=== PATIENT | female | born 1995 | race Caucasian/White ===

== ENCOUNTER 2016-07-27 21:21 | Emergency (ER) | payer OTHER ==
[~2016-07-27] VITALS: Ht 162.6 cm; Wt 107.3 kg
[~2016-07-27 21:21] MED LIST: AZITHROMYCIN250 MG1 PO; IBUPROFEN800 MG PO; PRENATAL TABLE1 EAC3 PO; ZANTAC150 MG PO
[2016-07-27 21:35] VITALS: BP 135/88
[2016-07-27 22:22] LABS: ADD MIUA? NO; BILIRUBIN NEGATIVE; BLOOD NEGATIVE; COLOR YELLOW ((YELLOW)); GLUCOSE (STRIP) NEGATIVE; KETONES NEGATIVE; LEUKOCYTES NEGATIVE; NITRITE NEGATIVE; PROTEIN (STRIP) NEGATIVE; SPECIFIC GRAVITY 1.025 (1.000-1.030); UCUL ADDED? NO
[2016-07-27 22:34] LABS: HEMATOCRIT 40.5 % (36.0-46.0); MCH 29.4 PG (29.0-34.0); MCHC 34.3 G/DL (30.0-36.0); MCV 85.8 FL (83-99); MEAN PLAT.VOLUME 9.3 uM^3 (9.5-12.4); PLATELET COUNT 198 K/uL (156-360); RBC DIS.WIDTH-CV 12.6 % (11.8-14.6); RBC DIS.WIDTH-SD 38.6 % (39-53); RED BLOOD COUNT 4.72 M/uL (3.80-5.20); WHITE BLOOD COUNT 4.9 K/uL (4.1-10.2)
[2016-07-27 22:47] LABS: CHLORIDE 105 mEq/L (99-109); POTASSIUM 3.8 mEq/L (3.7-5.4); SODIUM 139 mEq/L (136-147)
[2016-07-27 22:49] LABS: GLUCOSE 95 mg/dL (70-99)
[2016-07-27 22:51] LABS: ANION GAP 11 MEQ/L (2-14)
[2016-07-27 22:52] LABS: TOTAL BILIRUBIN 0.3 mg/dL (0.0-1.0)
[2016-07-27 22:53] LABS: ALKALINE PHOSPHATASE 88 IU/L (3-129); GFR ESTIMATE (CALCULATED) > 59 mL/min/
[2016-07-27 22:54] LABS: UREA NITROGEN (BUN) 12 mg/dL (9-23)
[2016-07-27 22:57] LABS: LIPASE 9 U/L (1.0-51.0)
[2016-07-27 23:03] LABS: QUANTITATIVE HCG < 4.0 MIU/ML
[2016-07-27 23:46] LABS: INFLUENZA A VIRAL ANTIGEN POSITIVE; INFLUENZA B VIRAL ANTIGEN NEGATIVE
[2016-07-27] MEDS ORDERED: TAMIFLU75 MG PO (23:58)
== END 2016-07-28 00:54 | disposition home or self-care (01) ==
LOC: RME 21:21 → EME 21:21 → RME 07-28 00:54
PROVIDERS: Physician Assistant
DX: J10.1 Influenza due to other identified influenza virus with other respiratory manifestations (principal); K59.00 Constipation, unspecified; F17.200 Nicotine dependence, unspecified, uncomplicated
CPT/HCPCS: 74022; 80053; 81003; 83690; 84702; 85027; 87502; 99281; 99283

== ENCOUNTER 2016-09-06 06:57 | Emergency (ER) | payer OTHER ==
[~2016-09-06] VITALS: Ht 165.1 cm; Wt 107.1 kg
[~2016-09-06 06:57] MED LIST changes: +TAMIFLU75 MG PO
[2016-09-06 07:02] VITALS: BP 132/88
[2016-09-06] MEDS ORDERED: NAPROXEN500 MG PO (08:33)
== END 2016-09-06 08:49 | disposition home or self-care (01) ==
LOC: EME 06:57
DX: S83.92XA Sprain of unspecified site of left knee, initial encounter (principal); W17.2XXA Fall into hole, initial encounter
CPT/HCPCS: 73564; 99281; 99283

== ENCOUNTER 2016-11-08 18:11 | Emergency (ER) | payer OTHER ==
[~2016-11-08] VITALS: Ht 165.1 cm; Wt 110.7 kg
[~2016-11-08 18:11] MED LIST changes: +NAPROXEN500 MG PO
[2016-11-08 20:41] LABS: HEMATOCRIT 46.3 % (36.0-46.0); MCH 29.2 PG (29.0-34.0); MCHC 33.3 G/DL (30.0-36.0); MCV 87.9 FL (83-99); PLATELET COUNT 244 K/uL (156-360); RBC DIS.WIDTH-CV 13.1 % (11.8-14.6); RBC DIS.WIDTH-SD 41.9 % (39-53); RED BLOOD COUNT 5.27 M/uL (3.80-5.20); WHITE BLOOD COUNT 9.7 K/uL (4.1-10.2)
[2016-11-08 20:44] LABS: CHLORIDE 106 mEq/L (99-109); POTASSIUM 4.1 mEq/L (3.7-5.4); SODIUM 139 mEq/L (136-147)
[2016-11-08 20:45] LABS: GLUCOSE 93 mg/dL (70-99)
[2016-11-08 20:47] LABS: ANION GAP 9 MEQ/L (2-14)
[2016-11-08 20:48] LABS: D-DIMER ELISA 0.19 mg/L FEU (< 0.57)
[2016-11-08 20:49] LABS: GFR ESTIMATE (CALCULATED) > 59 mL/min/
[2016-11-08 20:50] LABS: UREA NITROGEN (BUN) 16 mg/dL (9-23)
[2016-11-08 20:57] LABS: TROP-I INTERPRETATION NEGATIVE; TROPONIN-I < 0.01 ng/mL (0.0-0.30)
[2016-11-08 22:53] LABS: TROP-I INTERPRETATION NEGATIVE; TROPONIN-I < 0.01 ng/mL (0.0-0.30)
[2016-11-08 23:31] VITALS: BP 141/75
== END 2016-11-08 23:32 | disposition home or self-care (01) ==
LOC: EME 18:11
PROVIDERS: Physician Assistant Medical
DX: R07.89 Other chest pain (principal); F17.200 Nicotine dependence, unspecified, uncomplicated
CPT/HCPCS: 71020; 80048; 84484; 85027; 85379; 93005; 99281; 99283

== ENCOUNTER 2017-02-06 22:48 | Emergency (ER) | payer OTHER ==
[~2017-02-06] VITALS: Ht 165.1 cm; Wt 110.1 kg
[2017-02-06] MEDS ORDERED: ERYTHROMYC1 APPLICAT BOTH EYES (23:49)
[2017-02-06 23:57] VITALS: BP 125/75
== END 2017-02-06 23:59 | disposition home or self-care (01) ==
LOC: EME 22:48
DX: H10.9 Unspecified conjunctivitis (principal); F17.200 Nicotine dependence, unspecified, uncomplicated
CPT/HCPCS: 99281; 99284

== ENCOUNTER 2018-02-08 06:22 | Emergency (ER) | payer OTHER ==
[~2018-02-08] VITALS: Ht 165.1 cm; Wt 110.7 kg
[~2018-02-08 06:22] MED LIST changes: +ERYTHROMYC1 APPLICAT BOTH EYES
[2018-02-08 07:08] LABS: HEMATOCRIT 39.2 % (36.0-46.0); HEMOGLOBIN 13.6 G/DL (11.9-15.5); MCH 30.8 PG (29.0-34.0); MCHC 34.7 G/DL (30.0-36.0); MCV 88.7 FL (83-99); PLATELET COUNT 241 K/uL (156-360); RBC DIS.WIDTH-CV 12.7 % (11.8-14.6); RBC DIS.WIDTH-SD 41.2 % (39-53); RED BLOOD COUNT 4.42 M/uL (3.80-5.20); WHITE BLOOD COUNT 9.1 K/uL (4.1-10.2)
[2018-02-08 07:37] LABS: CHLORIDE 105 MEQ/L (99-109); POTASSIUM 3.2 MEQ/L (3.7-5.4); SODIUM 141 MEQ/L (136-147); TOTAL BILIRUBIN 0.3 MG/DL (0.0-1.0)
[2018-02-08 07:42] LABS: ALKALINE PHOSPHATASE 91 IU/L (3-129); ALT (GPT) 28 IU/L (3-49); AST (GOT) 19 IU/L (2-34); CREATININE 0.7 MG/DL (0.6-1.3); GFR ESTIMATE (CALCULATED) > 59 mL/min/; GLUCOSE 94 mg/dL (70-99); LIPASE 4 U/L (1.0-51.0); TOTAL PROTEIN 6.8 G/DL (6.4-8.3); UREA NITROGEN (BUN) 6 mg/dL (9-23)
[2018-02-08 07:44] LABS: QUANTITATIVE HCG < 4.0 MIU/ML
[2018-02-08] MEDS ORDERED: FLEXERIL10 MG PO (09:25)
[2018-02-08] MEDS ORDERED: MOTRIN800 MG PO (09:25)
[2018-02-08 09:49] VITALS: BP 145/76
== END 2018-02-08 09:59 | disposition home or self-care (01) ==
LOC: EME 06:22
PROVIDERS: Nurse Practitioner Family
DX: M94.0 Chondrocostal junction syndrome [Tietze] (principal); F17.200 Nicotine dependence, unspecified, uncomplicated
CPT/HCPCS: 71046; 71275; 80053; 83690; 84702; 85027; 85379; 99281; 99284; J7030

== ENCOUNTER 2018-02-20 17:56 | Inpatient (IN) | payer OTHER ==
[~2018-02-20] VITALS: Ht 165.1 cm; Wt 106.9 kg
[~2018-02-20 17:56] MED LIST changes: +FLEXERIL10 MG PO; +MOTRIN800 MG PO
[2018-02-20 19:00] LABS: HEMATOCRIT 39.9 % (36.0-46.0); HEMOGLOBIN 13.9 G/DL (11.9-15.5); MCH 30.2 PG (29.0-34.0); MCHC 34.8 G/DL (30.0-36.0); MCV 86.6 FL (83-99); PLATELET COUNT 249 K/uL (156-360); RBC DIS.WIDTH-CV 12.2 % (11.8-14.6); RBC DIS.WIDTH-SD 38.7 % (39-53); RED BLOOD COUNT 4.61 M/uL (3.80-5.20); WHITE BLOOD COUNT 18.2 K/uL (4.1-10.2)
[2018-02-20 19:20] LABS: CHLORIDE 96 mEq/L (99-109); SODIUM 133 mEq/L (136-147)
[2018-02-20 19:22] LABS: GLUCOSE 125 mg/dL (70-99)
[2018-02-20 19:23] LABS: TOTAL PROTEIN 8.1 g/dL (6.4-8.3)
[2018-02-20 19:24] LABS: TOTAL BILIRUBIN 1.2 mg/dL (0.0-1.0)
[2018-02-20 19:26] LABS: ALKALINE PHOSPHATASE 100 IU/L (3-129); CREATININE 0.8 mg/dL (0.6-1.3); GFR ESTIMATE (CALCULATED) > 59 mL/min/
[2018-02-20 19:27] LABS: UREA NITROGEN (BUN) 5 mg/dL (9-23)
[2018-02-20 19:28] LABS: AST (GOT) 18 IU/L (2-34)
[2018-02-20 19:29] LABS: ALT (GPT) 24 IU/L (3-49); LIPASE 3 U/L (1.0-51.0)
[2018-02-20 19:56] LABS: QUANTITATIVE HCG < 4.0 MIU/ML
[2018-02-20 20:42] LABS: APPEARANCE CLOUDY ((CLEAR)); BILIRUBIN NEGATIVE; BLOOD MODERATE; COLOR YELLOW ((YELLOW)); GLUCOSE (STRIP) NEGATIVE; KETONES 20; LEUKOCYTES LARGE; NITRITE POSITIVE; PROTEIN (STRIP) 100
[2018-02-20 21:03] LABS: BACTERIA 2+ /HPF; MUCUS NONE SEEN /LPF; UCUL ADDED? YES; WHITE BLOOD CELLS TNTC /HPF (0-5)
[2018-02-20 21:04] LABS: EPITHELIAL CELLS 1+ /HPF
[2018-02-20] MEDS ORDERED: MOTRIN800 MG PO (22:12)
[2018-02-21] VITALS (7 sets, daily range): BP systolic 118–137; BP diastolic 58–93
[2018-02-21 05:44] LABS: BASOPHIL (%) 0.2 % (0-1); EOSINOPHIL (%) 0 % (0-5); HEMATOCRIT 37.9 % (36.0-46.0); HEMOGLOBIN 12.8 G/DL (11.9-15.5); IMMATURE GRANULOCYTE (%) 0.5 % (0.0-0.7); LYMPHOCYTE (%) 9.2 % (15-42); LYMPHOCYTE COUNT 1.6 K/uL (1.0-2.8); MCH 29.5 PG (29.0-34.0); MCHC 33.8 G/DL (30.0-36.0); MCV 87.3 FL (83-99); MONOCYTE (%) 9.9 % (3-12); MONOCYTE COUNT 1.7 K/uL (0-0.8); NEUTROPHIL (%) 80.2 % (45-76); NEUTROPHIL COUNT 13.8 K/uL (1.8-6.4); PLATELET COUNT 232 K/uL (156-360); RBC DIS.WIDTH-CV 12.1 % (11.8-14.6); RBC DIS.WIDTH-SD 39.2 % (39-53); RED BLOOD COUNT 4.34 M/uL (3.80-5.20); WHITE BLOOD COUNT 17.2 K/uL (4.1-10.2)
[2018-02-21 06:14] LABS: CHLORIDE 103 MEQ/L (99-109); CREATININE 0.5 MG/DL (0.6-1.3); GFR ESTIMATE (CALCULATED) > 59 mL/min/; GLUCOSE 97 mg/dL (70-99); POTASSIUM 3.2 MEQ/L (3.7-5.4); SODIUM 138 MEQ/L (136-147); UREA NITROGEN (BUN) 5 mg/dL (9-23)
[2018-02-22 04:41] VITALS: BP 133/82
[2018-02-22 06:41] LABS: BASOPHIL (%) 0.2 % (0-1); EOSINOPHIL (%) 0.6 % (0-5); EOSINOPHIL COUNT 0.1 K/uL (0-0.3); HEMATOCRIT 35.3 % (36.0-46.0); HEMOGLOBIN 11.8 G/DL (11.9-15.5); IMMATURE GRANULOCYTE (%) 0.2 % (0.0-0.7); LYMPHOCYTE COUNT 1.7 K/uL (1.0-2.8); MCH 29.6 PG (29.0-34.0); MCHC 33.4 G/DL (30.0-36.0); MCV 88.7 FL (83-99); MONOCYTE (%) 9.7 % (3-12); NEUTROPHIL (%) 72.3 % (45-76); NEUTROPHIL COUNT 7.1 K/uL (1.8-6.4); PLATELET COUNT 203 K/uL (156-360); RBC DIS.WIDTH-CV 12.2 % (11.8-14.6); RBC DIS.WIDTH-SD 39.9 % (39-53); RED BLOOD COUNT 3.98 M/uL (3.80-5.20); WHITE BLOOD COUNT 9.9 K/uL (4.1-10.2)
[2018-02-22 07:01] LABS: CHLORIDE 107 MEQ/L (99-109); CREATININE 0.5 MG/DL (0.6-1.3); GFR ESTIMATE (CALCULATED) > 59 mL/min/; GLUCOSE 79 mg/dL (70-99); SODIUM 141 MEQ/L (136-147); UREA NITROGEN (BUN) 6 mg/dL (9-23)
[2018-02-22 07:03] LABS: POTASSIUM 4.1 MEQ/L (3.7-5.4)
[2018-02-22 07:55] VITALS: BP 148/80
[2018-02-22 11:27] VITALS: BP 117/68
[2018-02-22 15:32] VITALS: BP 137/70
[2018-02-22 19:51] VITALS: BP 130/74
[2018-02-23] VITALS (7 sets, daily range): BP systolic 110–148; BP diastolic 61–96
[2018-02-23 10:26] LABS: HEMATOCRIT 35.5 % (36.0-46.0); HEMOGLOBIN 11.8 G/DL (11.9-15.5); MCH 29.4 PG (29.0-34.0); MCHC 33.2 G/DL (30.0-36.0); MCV 88.3 FL (83-99); PLATELET COUNT 255 K/uL (156-360); RBC DIS.WIDTH-CV 12.3 % (11.8-14.6); RBC DIS.WIDTH-SD 39.8 % (39-53); RED BLOOD COUNT 4.02 M/uL (3.80-5.20); WHITE BLOOD COUNT 7.8 K/uL (4.1-10.2)
[2018-02-24 05:48] LABS: HEMATOCRIT 36.3 % (36.0-46.0); HEMOGLOBIN 12.2 G/DL (11.9-15.5); MCH 29.5 PG (29.0-34.0); MCHC 33.6 G/DL (30.0-36.0); MCV 87.9 FL (83-99); PLATELET COUNT 279 K/uL (156-360); RBC DIS.WIDTH-CV 12.4 % (11.8-14.6); RED BLOOD COUNT 4.13 M/uL (3.80-5.20); WHITE BLOOD COUNT 5.5 K/uL (4.1-10.2)
[2018-02-24 07:45] VITALS: BP 134/78
[2018-02-24] MEDS ORDERED: CEFTRIAXONE2 G1 IV (10:09)
[2018-02-24] MEDS ORDERED: TRAMADOL HCL50 MG PO (10:19)
[2018-02-24 12:10] VITALS: BP 126/62
== END 2018-02-24 13:34 | disposition home or self-care (01) | DRG 690 ==
LOC: EME 17:56 → EDOF 23:23 → 4SOUTH 23:23 → EDOF 23:23 → 4SOUTH 02-21 00:01
PROVIDERS: Internal Medicine; Physician Assistant; Physician Assistant Medical
DX: N10 Acute pyelonephritis (principal); R78.81 Bacteremia; K92.0 Hematemesis; J98.11 Atelectasis; B96.20 Unspecified Escherichia coli [E. coli] as the cause of diseases classified elsewhere; F17.210 Nicotine dependence, cigarettes, uncomplicated; E87.6 Hypokalemia; Z87.440 Personal history of urinary (tract) infections; E66.9 Obesity, unspecified; Z68.39 Body mass index [BMI] 39.0-39.9, adult
CPT/HCPCS: 71046; 74177; 80048; 80053; 81003; 83605; 83690; 84702; 85025; 85027; 87040; 87077; 87086; 87186; 87641; 87801; 99281; 99285; C9113; G0378; J0696; J1650; J1885; J2270; J2405; J2765; J3010; J3480; J7030; J7040; S0028